=== PATIENT | female | born 2000 | race Caucasian/White ===

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

== ENCOUNTER 2018-01-19 09:35 | Emergency (ER) | payer OTHER ==
[2018-01-19] MEDS: LIDOCAINE 1% (MDV) 10 ML INJ INJ (10:19)
== END 2018-01-19 11:15 | disposition home or self-care (01) ==
LOC: FTE 09:35
DX: L02.212 Cutaneous abscess of back [any part, except buttock and flank] (principal)
CPT/HCPCS: 10060; 99284-25

== ENCOUNTER 2018-01-22 21:43 | Emergency (ER) | payer OTHER | END 2018-01-23 00:32 | disposition home or self-care (01) | LOC: FTE 01-23 00:32 | DX: Z48.01 Encounter for change or removal of surgical wound dressing (principal) | CPT/HCPCS: 99281 ==

== ENCOUNTER 2018-01-27 09:03 | Emergency (ER) | payer OTHER | END 2018-01-27 11:00 | disposition home or self-care (01) | LOC: FTE 09:03 | DX: L05.01 Pilonidal cyst with abscess (principal) | CPT/HCPCS: 10080; 99284-25 ==